=== PATIENT | male | born 1970 | race Caucasian/White ===

== ENCOUNTER → 2018-06-04 | Outpatient (CLI) | payer MEDICARE, OTHER ==
[~2018-06-04] MED LIST: ADDERALL 20 MG20 MG PO; ADDERALL20 MG PO; ATIVAN1 MG PO; FLEXERIL10 MG PO; HYDROCODONE BIT1 T11 PO; NAPROSYN500 MG PO; PREVACID15 M1 PO; PRILOSEC20 M1 PO; REGLAN5 MG PO; VOLTAREN50 MG PO; ZANTAC 300300 MG PO
== END | disposition home or self-care (01) ==
LOC: ORTHO 00:01 → RAD 00:01 → ORTHO 04:08
DX: S62.306D Unspecified fracture of fifth metacarpal bone, right hand, subsequent encounter for fracture with routine healing (principal); X58.XXXD Exposure to other specified factors, subsequent encounter

== ENCOUNTER → 2018-06-18 | Outpatient (CLI) | payer MEDICARE, OTHER | END | disposition home or self-care (01) | LOC: ORTHO 04:11 | DX: S62.306D Unspecified fracture of fifth metacarpal bone, right hand, subsequent encounter for fracture with routine healing (principal); X58.XXXD Exposure to other specified factors, subsequent encounter ==

== ENCOUNTER 2018-08-29 18:31 | Emergency (ER) | payer MEDICARE, OTHER ==
[~2018-08-29] VITALS: Ht 182.8 cm; Wt 74.8 kg
--- NOTE | ~2018-08-29 | EKG ---
[place], [place] ELECTROCARDIOGRAM REPORT NAME: ZHEN GOODMAN UNIT #: [id number] ROOM: DOCTOR: EPIPHANY DRAFT REPORT BIRTHDATE: [birth year] [facility] Test Date: 2018-08-29 Test Time: 18:51:23 Pat Name: ZHEN GOODMAN Department: ed Room: Gender: Program Management Analyst: Patience Dooley : 1970 Requested By: NADIA JARRELL Order Number: [id number] Reading MD: Jayden Walton MD Measurements Intervals [place] Rate: 117 P: 74 WA: 158 QRS: -11 QRSD: 82 T: QT: 284 QTc: 397 Interpretive Statements Sinus tachycardia Biatrial enlargement Borderline T wave abnormalities Electronically Signed On 09-01-2018 4:33:14 PST by Jayden Walton MD CM:EKGRPT:ELECTROCARDIOGRAM REPORT [id number] NADIA TIM DRAFT REPORT NADIA JARRELL MD
[2018-08-29] MEDS ORDERED: TESSALON PERLE100 M1 PO (20:02)
[2018-08-29] MEDS ORDERED: PREDNISONE20 M1 PO (20:02)
[2018-08-29] MEDS ORDERED: PROVENTIL HFA6.7 GM INH (20:02)
[2018-08-29] MEDS ORDERED: DOXYCYCLINE100 M3 PO (20:02)
== END 2018-08-29 20:10 | disposition home or self-care (01) ==
LOC: ED 18:31
DX: J40 Bronchitis, not specified as acute or chronic (principal); F17.210 Nicotine dependence, cigarettes, uncomplicated; Z90.49 Acquired absence of other specified parts of digestive tract; Z98.890 Other specified postprocedural states; Z96.641 Presence of right artificial hip joint; Z79.899 Other long term (current) drug therapy

== ENCOUNTER 2020-09-13 21:33 | Emergency (ER) | payer MEDICARE, OTHER ==
[~2020-09-13] VITALS: Ht 182.8 cm; Wt 72.6 kg
[~2020-09-13 21:33] MED LIST changes: +DOXYCYCLINE100 M3 PO; +PREDNISONE20 M1 PO; +PROVENTIL HFA6.7 GM INH; +TESSALON PERLE100 M1 PO
[2020-09-13] MEDS ORDERED: PENICILLIN VK500 MG PO (23:38)
== END 2020-09-13 23:45 | disposition home or self-care (01) ==
LOC: ED 21:33
DX: K04.7 Periapical abscess without sinus (principal); R22.0 Localized swelling, mass and lump, head; K21.9 Gastro-esophageal reflux disease without esophagitis; F17.200 Nicotine dependence, unspecified, uncomplicated; Z79.899 Other long term (current) drug therapy; Z90.49 Acquired absence of other specified parts of digestive tract; Z96.641 Presence of right artificial hip joint; Z98.890 Other specified postprocedural states